=== PATIENT | female | born 1995 | race Caucasian/White ===

== ENCOUNTER 2018-07-14 20:57 | Emergency (ER) | payer OTHER ==
[~2018-07-14] VITALS: Ht 167.6 cm; Wt 90.0 kg
[~2018-07-14 20:57] MED LIST: ALLEGRA-D12 HOUR OR; AUGMENTIN400 MG OR; AUGMENTIN875 MG OR; LORTAB5 PO; NO HOME MEDS; TYLENOL & COD12.5 ML OR
[2018-07-14] MEDS ORDERED: XULANE 150-35 M1 DIS PO (21:14)
[2018-07-14] MEDS ORDERED: IBUPROFEN600 MG PO (23:05)
[2018-07-14 23:15] VITALS: BP 135/91
== END 2018-07-14 23:15 | disposition home or self-care (01) | DRG 605 ==
LOC: ED 20:57
DX: S00.03XA Contusion of scalp, initial encounter (principal); S50.312A Abrasion of left elbow, initial encounter; V49.50XA Passenger injured in collision with unspecified motor vehicles in traffic accident, initial encounter